=== PATIENT | female | born 1960 | race Hispanic/Latino ===

== ENCOUNTER 2017-05-04 15:41 | Inpatient (IN) | payer BC, OTHER ==
[2017-05-04] MEDS ORDERED: Iopamidol 370 76% 100 ML VIAL ONE (16:10)
[2017-05-04 16:26] LABS: ALT (SGPT) 61 U/L (8-55); AST (SGOT) 38 U/L (5-34); Alkaline Phosphatase 118 U/L (40-150); Anion Gap 15 mmol/L (10-20); BUN (Urea Nitrogen) 20 mg/dL (9.8-20.1); Bilirubin, Total 0.3 mg/dL (0.2-1.2); Calc. Creatinine Clearance 0 mL/min (70-130); Calcium 9.8 mg/dL (7.8-10.44); Carbon Dioxide 24 mmol/L (22-29); Chloride 105 mmol/L (98-107); Estimated GFR-MDRD 48; Globulin 2.9 g/dL (2.4-3.5); Protein, Total 7.4 g/dL (6.0-8.3)
[2017-05-04 16:45] LABS: #Basophils 0.1 thou/uL (0.0-0.2); #Eosinphils 0.1 thou/uL (0.0-0.7); #Lymphocytes 2.2 thou/uL (1.20-3.40); #Monocytes 0.5 thou/uL (0.11-0.59); #Neutrophils 5.3 thou/uL (1.40-6.50); %Basophils 1.4 % (0.0-1.0); %Eosinophils 0.9 % (0.0-10.0); %Lymphocytes 26.6 % (21.0-51.0); %Monocytes 6.1 % (0.0-10.0); Mean Platelet Volume 8.5 fL (7.4-10.4); Red Blood Cell (RBC) Count 4.61 mill/uL (4.20-5.40); White Blood Cell (WBC) Count 8.2 thou/uL (4.8-10.8)
[2017-05-04 16:46] LABS: Anisocytosis SLIGHT = 6-15 cells (100X) (0-5/hpf); Hypochromia SLIGHT = 6-15 cells (100X) (0-5/hpf); Microcytosis SLIGHT = 6-15 cells (100X) (0-5/hpf)
[2017-05-04] MEDS ORDERED: Ondansetron HCl/PF 4 MG/2 ML Vial ONE (16:53)
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
[2017-05-04] MEDS ORDERED: traMADol HCl 50 MG TAB PO PRN (19:50)
[2017-05-04] MEDS ORDERED: Dextrose 50% Abboject 50 ML SYRINGE SLOW IVP PRN (19:50)
[2017-05-04] MEDS ORDERED: Cyclobenzaprine 10 MG TAB PO PRN (19:50)
[2017-05-04] MEDS ORDERED: Promethazine HCl 25 MG/ML VIAL IM PRN (19:50)
[2017-05-04] MEDS ORDERED: Ondansetron ODT 4 MG TAB PO PRN (19:50)
[2017-05-04] MEDS ORDERED: Ondansetron HCl/PF 4 MG/2 ML Vial IVP PRN (19:50)
[2017-05-04] MEDS ORDERED: Dextrose 5% in Water 1,000 ML IV PRN (19:50)
[2017-05-04] MEDS: Senokot S 8.6-50 MG TAB PO SCH (20:17)
[2017-05-04] MEDS: Famotidine 20 MG TAB PO SCH (20:17)
[2017-05-04] MEDS: Gabapentin 100 MG CAP PO SCH (20:17)
[2017-05-04] MEDS: Sodium Chloride 0.9% 1,000 ML IV SCH (21:30)
[2017-05-05] MEDS: traMADol HCl 50 MG TAB PO SCH ×5 (00:33→23:37)
[2017-05-05] MEDS: Acetaminophen 500 MG TAB PO SCH ×5 (00:34→23:36)
[2017-05-05 01:40] VITALS: BMI 28.5
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
[2017-05-05 05:45] LABS: #Basophils 0.1 thou/uL (0.0-0.2); #Eosinphils 0.1 thou/uL (0.0-0.7); #Lymphocytes 2.2 thou/uL (1.20-3.40); #Monocytes 0.6 thou/uL (0.11-0.59); #Neutrophils 4.6 thou/uL (1.40-6.50); %Basophils 1.4 % (0.0-1.0); %Eosinophils 1.4 % (0.0-10.0); %Lymphocytes 28.9 % (21.0-51.0); %Monocytes 7.3 % (0.0-10.0); Hematocrit 32.3 % (36.0-47.0); Mean Platelet Volume 8.8 fL (7.4-10.4); Red Blood Cell (RBC) Count 3.95 mill/uL (4.20-5.40); White Blood Cell (WBC) Count 7.6 thou/uL (4.8-10.8)
[2017-05-05 05:59] LABS: Anion Gap 9 mmol/L (10-20); BUN (Urea Nitrogen) 16 mg/dL (9.8-20.1); Calc. Creatinine Clearance 75 mL/min (70-130); Calcium 8.7 mg/dL (7.8-10.44); Carbon Dioxide 25 mmol/L (22-29); Chloride 106 mmol/L (98-107); Estimated GFR-MDRD 65; Magnesium 2.4 mg/dL (1.6-2.6); Phosphorus 4.2 mg/dL (2.3-4.7)
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
[2017-05-05] MEDS: Sodium Chloride 0.9% 1,000 ML IV SCH ×3 (06:33→23:38)
[2017-05-05] MEDS: Gabapentin 100 MG CAP PO SCH ×3 (08:34→20:16)
[2017-05-05] MEDS: Senokot S 8.6-50 MG TAB PO SCH ×2 (08:34→20:16)
[2017-05-05] MEDS: Famotidine 20 MG TAB PO SCH ×2 (08:34→20:16)
[2017-05-05] MEDS ORDERED: FLU VACC QS2017-18 36 mo. & older 0.5 ML SYRINGE IM ONE (09:00)
[2017-05-05] MEDS: Ibuprofen 600 MG TAB PO SCH ×3 (10:27→21:06)
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
[2017-05-05] MEDS: Polyethylene Glycol 3350 17 GM Packet PO SCH (15:32)
[2017-05-06] MEDS: Ibuprofen 600 MG TAB PO SCH ×2 (05:00→10:37)
[2017-05-06] MEDS: traMADol HCl 50 MG TAB PO SCH ×2 (05:02→12:28)
[2017-05-06] MEDS: Acetaminophen 500 MG TAB PO SCH ×2 (05:02→12:28)
[2017-05-06] MEDS: Gabapentin 100 MG CAP PO SCH ×2 (10:36→16:10)
[2017-05-06] MEDS: Polyethylene Glycol 3350 17 GM Packet PO SCH (10:37)
[2017-05-06] MEDS: Senokot S 8.6-50 MG TAB PO SCH (10:37)
[2017-05-06] MEDS: Sodium Chloride 0.9% 1,000 ML IV SCH (10:49)
[2017-05-06 13:05] VITALS: TEMP 97.7
[2017-05-06 14:17] VITALS: BP 105/68
== END 2017-05-06 16:33 | disposition home or self-care (01) | DRG 552 ==
LOC: SCSER 15:41 → SJJU 18:37
PROVIDERS: ADMIT Surgery; ATTEND Surgery
PROC: 2W35X3Z Immobilization of Back using Brace (ICD-10-PCS; principal; 2017-05-04)
DX: S22.081A Stable burst fracture of T11-T12 vertebra, initial encounter for closed fracture (principal); S06.0X0A Concussion without loss of consciousness, initial encounter; V47.0XXA Car driver injured in collision with fixed or stationary object in nontraffic accident, initial encounter; M79.7 Fibromyalgia; M81.0 Age-related osteoporosis without current pathological fracture; E11.9 Type 2 diabetes mellitus without complications; K57.90 Diverticulosis of intestine, part unspecified, without perforation or abscess without bleeding; Z23 Encounter for immunization; Z87.11 Personal history of peptic ulcer disease
CPT/HCPCS: 36415; 70450; 71260; 72125; 74177; 80048; 80053; 83735; 84100; 85025; 90471; 90682; 96374; 96375; G0008; G0390; G8978-GP-CK; G8979-GP-CJ; G8987-GO-CJ; G8988-GO-CI; J2270; J2405; Q2036

== ENCOUNTER 2017-06-08 09:48 | Outpatient (CLI) | payer BC, OTHER ==
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
== END 2017-06-08 09:49 | disposition home or self-care (01) ==
LOC: TBSIIMAG 09:48
PROVIDERS: ATTEND Physician Assistant
DX: M54.9 Dorsalgia, unspecified (principal); M47.9 Spondylosis, unspecified; S22.9XXD Fracture of bony thorax, part unspecified, subsequent encounter for fracture with routine healing
CPT/HCPCS: 72100

== ENCOUNTER 2017-07-15 12:58 | Outpatient (CLI) | payer BC ==
--- NOTE | 2017-07-15 15:02 | RAD ---
LUMBAR SPINE TWO VIEWS: History: T12 fracture. Follow up. Comparison: 06-08-17 FINDINGS: Compression fractures involving T12 and L4 are similar in appearance to the previous exam. Leftward c onvex curvature of the upper lumbar spine is again demonstrated. Pedicles are intact. No new fracture s are evident. IMPRESSION: Stable radiographic appearance of the compression fractures at the T12 and L4 levels. POS: [facility]
== END 2017-07-15 12:59 | disposition home or self-care (01) ==
LOC: TBSIIMAG 12:58
PROVIDERS: ATTEND Neurological Surgery
DX: S22.008A Other fracture of unspecified thoracic vertebra, initial encounter for closed fracture (principal)
CPT/HCPCS: 72100

== ENCOUNTER 2017-08-17 10:27 | Outpatient (CLI) | payer BC ==
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
== END 2017-08-17 10:28 | disposition home or self-care (01) ==
LOC: TBSIIMAG 10:27
PROVIDERS: ATTEND Neurological Surgery
DX: S22.008A Other fracture of unspecified thoracic vertebra, initial encounter for closed fracture (principal)
CPT/HCPCS: 72100

== ENCOUNTER 2017-12-29 11:32 | Outpatient (CLI) | payer BC ==
[~2017-12-29 11:32] MED LIST: Iopamidol 370 76% 100 ML VIAL ONE
--- NOTE | 2017-12-29 16:07 | CT ---
CT ABDOMEN AND PELVIS WITH ORAL AND IV CONTRAST: 12/29/17 HISTORY: Lower abdominal pain. Comparison is made with the exam of 11/18/15. The lung bases are clear. The liver, spleen, pancreas, adrenal glands and kidneys are normal. No calc ified gallstones are seen. No free air or free fluid is seen in the abdomen or pelvis. The small bowel loops are not abnormally dilated. A normal appearing appendix is present. There is si gmoid diverticulosis with thickening of the sigmoid colon in the left lower quadrant with surrounding inflammatory changes. There are prominent lymph nodes in the sigmoid mesentery. No abnormally locula storm fluid collection is seen to suggest abscess formation. Uterus and ovaries are present. There is c ompression of T12 vertebral body. IMPRESSION: Sigmoid diverticulitis. POS: [facility]
== END 2017-12-29 11:33 | disposition home or self-care (01) ==
LOC: SCSCT 11:32
PROVIDERS: ATTEND Internal Medicine Gastroenterology
DX: R10.32 Left lower quadrant pain (principal); K59.00 Constipation, unspecified; D64.9 Anemia, unspecified; K57.32 Diverticulitis of large intestine without perforation or abscess without bleeding
CPT/HCPCS: 74177; 82565

== ENCOUNTER 2018-02-10 11:23 | Outpatient (CLI) | payer BC | END 2018-02-10 11:24 | disposition home or self-care (01) | LOC: BICMAMMO 11:23 | PROVIDERS: ATTEND Internal Medicine Medical Oncology | DX: Z12.31 Encounter for screening mammogram for malignant neoplasm of breast (principal); N64.89 Other specified disorders of breast; Z80.3 Family history of malignant neoplasm of breast | CPT/HCPCS: 77063; 77067 ==

== ENCOUNTER 2018-02-18 09:03 | Outpatient (CLI) | payer BC | END 2018-02-18 09:04 | disposition home or self-care (01) | LOC: BICMAMMO 09:03 | PROVIDERS: ATTEND Internal Medicine Medical Oncology | DX: R92.2 Inconclusive mammogram (principal); Z80.3 Family history of malignant neoplasm of breast | CPT/HCPCS: 77066; G0279 ==

== ENCOUNTER 2022-03-04 10:41 | Outpatient (CLI) | payer BC ==
[2022-03-04 15:09] LABS: #Basophils 0.1 thou/uL (0.0-0.2); #Eosinphils 0.2 thou/uL (0.0-0.7); #Lymphocytes 2.2 thou/uL (1.20-3.40); #Monocytes 0.6 thou/uL (0.11-0.59); #Neutrophils 4.4 thou/uL (1.40-6.50); %Basophils 0.9 % (0.0-1.0); %Eosinophils 2.4 % (0.0-10.0); %Lymphocytes 29.4 % (21.0-51.0); %Monocytes 8.2 % (0.0-10.0); %Neutrophils 59.2 % (42.0-75.0); Hemoglobin 13.6 g/dL (12.0-16.0); Mean Corpuscular Hemoglobin 30.9 pg (27.0-31.0); Mean Corpuscular Volume 96.5 fL (78.0-98.0); Mean Platelet Volume 8.3 fL (7.4-10.4); Platelet Count 275 thou/uL (130-400); RBC Distribution Width 11.7 % (11.5-14.5); Red Blood Cell (RBC) Count 4.41 mill/uL (4.20-5.40); White Blood Cell (WBC) Count 7.4 thou/uL (4.8-10.8)
[2022-03-04 15:10] LABS: Reticulocyte Count 1.3 % (0.5-1.5)
[2022-03-04 15:11] LABS: Bacteria/HPF None Seen HPF (None Seen); Bilirubin Negative (Negative); Blood, Urine Negative (Negative); Clarity Clear (Clear); Glucose, Urine (Dipstick) Normal (Negative); Ketone, Urine Negative (Negative); Leukocyte Negative Leu/uL (Negative); Nitrite Negative (Negative); Protein, Urine (Dipstick) Negative (Neg-Trace); RBC/HPF None Seen HPF (0-3); Specific Gravity, Urine 1.004 (1.002-1.036); Squamous Epithelial 0-3 HPF (0-3); Urobilinogen Normal mg/dL (Less than 2); WBC/HPF 0-3 HPF (0-3); pH, Urine 6.5 (5.0-9.0)
[2022-03-04 15:34] LABS: ALT (SGPT) 97 U/L (8-55); AST (SGOT) 63 U/L (5-34); Albumin 4.6 g/dL (3.4-4.8); Alkaline Phosphatase 122 U/L (40-110); Anion Gap 14 mmol/L (10-20); BUN (Urea Nitrogen) 14 mg/dL (9.8-20.1); Bilirubin, Total 0.6 mg/dL (0.2-1.2); Calc. Creatinine Clearance 0 mL/min (70-130); Carbon Dioxide 24 mmol/L (23-31); Chloride 104 mmol/L (98-107); Cholesterol 296 mg/dl (< 200 Desired); Estimated GFR 77; Globulin 2.4 g/dL (2.4-3.5); Glucose 100 mg/dL (80-115); HDL Cholesterol 74 mg/dL (>60 Neg Risk); Iron 110 ug/dL (50-170); Iron Binding Capacity, Total 314 mcg/dL (265-497); LDL Cholesterol, Calculated 196 mg/dL; Potassium 4.2 mmol/L (3.5-5.1); Sodium 138 mmol/L (136-145); Triglycerides 131 mg/dL (Less than 150)
[2022-03-04 15:41] LABS: Ferritin 162.19 ng/mL (10-291); Thyroid Stimulating Hormone 0.7263 uIU/mL (0.35-4.94)
[2022-03-04 15:46] LABS: Vitamin D, 25 Hydroxy 18.5 ng/ml (> 30.0)
== END 2022-03-04 10:42 | disposition home or self-care (01) ==
LOC: SCSRAD 10:41
PROVIDERS: ATTEND Family Medicine
DX: Z00.00 Encounter for general adult medical examination without abnormal findings (principal); M81.0 Age-related osteoporosis without current pathological fracture; M79.7 Fibromyalgia; D50.9 Iron deficiency anemia, unspecified; R05.9 Cough, unspecified
CPT/HCPCS: 36415; 71046; 80053; 80061; 81001; 82306; 82728; 83540; 83550; 84443; 85025; 85046

== ENCOUNTER 2022-03-12 07:59 | Outpatient (CLI) | payer BC | END 2022-03-12 08:00 | disposition home or self-care (01) | LOC: BICMAMMO 07:59 | PROVIDERS: ATTEND Family Medicine | DX: Z12.31 Encounter for screening mammogram for malignant neoplasm of breast (principal); M81.0 Age-related osteoporosis without current pathological fracture | CPT/HCPCS: 77063; 77067; 77080 ==

== ENCOUNTER 2023-06-08 11:04 | Outpatient (CLI) | payer BC | END 2023-06-08 11:05 | disposition home or self-care (01) | LOC: BICMAMMO 11:04 | PROVIDERS: ATTEND Family Medicine | DX: Z12.31 Encounter for screening mammogram for malignant neoplasm of breast (principal) | CPT/HCPCS: 77063; 77067 ==

== ENCOUNTER 2023-11-30 14:57 | Outpatient (CLI) | payer BC | END 2023-11-30 14:58 | disposition home or self-care (01) | LOC: SCSRAD 14:57 | PROVIDERS: ATTEND Internal Medicine Rheumatology | DX: M81.0 Age-related osteoporosis without current pathological fracture (principal); S22.081A Stable burst fracture of T11-T12 vertebra, initial encounter for closed fracture | CPT/HCPCS: 72072 ==

== ENCOUNTER 2024-05-15 08:25 | Outpatient (CLI) | payer BC | END 2024-05-15 08:26 | disposition home or self-care (01) | LOC: BICMAMMO 08:25 | PROVIDERS: ATTEND Family Medicine | DX: N64.4 Mastodynia (principal) | CPT/HCPCS: 77066; G0279 ==